=== PATIENT | male | born 1980 | race American Indian/Alaskan Native ===

== ENCOUNTER 2017-10-28 16:35 | Emergency (ER) | payer MEDICARE, SELFPAY ==
[2017-10-28 16:56] VITALS: BP 127/83; PULSE 97; RESP 16; O2SAT 100
[2017-10-28 16:58] VITALS: BP 129/74; PULSE 97; RESP 16; TEMP 37.3; O2SAT 100; BMI 24.1
--- NOTE | 2017-10-28 18:44 | DI.CT.S_ITS ---
PROCEDURE: CT HEAD/BRAIN WO CON INDICATIONS: s/p seizure w/ head trauma TECHNIQUE: Noncontrast 4.5 mm thick angled axial sections acquired from the foramen magnum to the vertex, with coronal and sagittal reformats. For radiation dose reduction, the following was used: automated exposure control, adjustment of mA and/or kV according to patient size. COMPARISON: None. FINDINGS: Image quality: Excellent. CSF spaces: Basal cisterns are patent. 18 mm diameter low-density focus within the right anterior frontal lobe is present, which is wedge-shaped. No extra-axial fluid collections. Ventricles are normal in size and shape. Brain: No midline shift. No intracranial masses or hemorrhage. Ast[place]a-white matter interface is normal. Skull and face: Calvarium and visualized facial bones are intact, without suspicious lesions. Sinuses: Visualized sinuses and mastoids are clear. IMPRESSION: 1. No acute intracranial abnormality. 2. 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 Dictated by: David Dominguez M.D. on 10/28/2017 at 19:16 Approved by: David Dominguez M.D. on 10/28/2017 at 19:17
[2017-10-28] MEDS: SODIUM CHLORIDE 0.9% 1,000 ML 1000 ML IV (18:52)
[2017-10-28 19:07] LABS: Calcium 9.9 mg/dL (8.4-10.2); Estimated Glomerular Filt Rate > 60.0 mL/min (>60); Ethanol (ETOH) < 10 mg/dL; Glucose 103 mg/dL (70-100); HEMOLYSIS 38 (0-50); Magnesium 1.7 mg/dL (1.6-2.3); Potassium 4.8 mmol/L (3.4-5.1); Sodium 143 mmol/L (137-145)
[2017-10-28 19:14] VITALS: BP 126/79; PULSE 88; RESP 18; O2SAT 97
[2017-10-28 19:16] LABS: Add Manual Diff / Slide Review NO; Basophils Percent Auto 0.6 % (0-2); Eosinophils Percent Auto 0.5 % (2-4); Hematocrit 43.9 % (41-53); Hemoglobin 14.8 g/dL (13.5-17.5); Lymphocytes Percent Auto 12.6 % (25-40); Mean Corpuscular HGB Conc 33.6 % (30-36); Mean Corpuscular Hemoglobin 31.8 PG (26-34); Mean Corpuscular Volume 94.7 fL (80-100); Monocytes Percent Auto 3.5 % (3-14); Neutrophils Absolute Auto 8900 /uL (3000-5900); Neutrophils Percent Auto 82.8 % (50-75); Platelet Count 228 X10^3/uL (150-400); Red Blood Cell Count 4.64 X10^6/uL (4.5-5.9); Red Cell Distribution Width 13.9 % (11.6-14.8); White Blood Cell Count 10.7 X10^3/uL (4.5-11.0)
[2017-10-28 21:00] VITALS: BP 122/76; PULSE 92; RESP 20; O2SAT 96
--- NOTE | 2017-10-28 21:49 | PC.NURSE ---
PROVIDER AT BEDSIDE SUTURING LACERATION TO RIGHT EAR. PT TOLERATING PROCEDURE.
[2017-10-28 22:22] VITALS: BP 123/72; PULSE 85; RESP 20; TEMP 36.4; O2SAT 99
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
== END 2017-10-28 22:29 | disposition home or self-care (01) ==
PROVIDERS: Emergency Provider Emergency Medicine
DX: R56.9 Unspecified convulsions (principal); S01.311A Laceration without foreign body of right ear, initial encounter; W19.XXXA Unspecified fall, initial encounter
CPT/HCPCS: 12013; 36591; 70450; 80048; 80320; 83735; 85025; 93005; 96360; 96361; 99283; 99285; 99291